=== PATIENT | female | born 1990 ===

== ENCOUNTER 2021-07-23 19:13 | Emergency (ER) | payer SELFPAY ==
[2021-07-23] MEDS ORDERED: Ciprofloxacin 500 MG Tab PO ONE (19:14)
[2021-07-23] MEDS ORDERED: Ondansetron 4 MG Tab.DIS PO ONE (19:14)
[2021-07-23] MEDS ORDERED: Sodium Chloride 0.9% 1,000 ML IV ONE (22:23)
[2021-07-23] MEDS ORDERED: Acetaminophen 325 MG Tab PO ONE (22:33)
[2021-07-23] MEDS ORDERED: fentaNYL 100 MCG/2 ML SDV IVPUSH ONE (22:34)
[2021-07-23] MEDS ORDERED: cefTRIAXone 1 GM in Sodium Chloride 0.9% 50 ML IV ONE (22:34)
[2021-07-23] MEDS ORDERED: Ondansetron 4 MG/2 ML SDV IVPUSH ONE (22:48)
[2021-07-23 22:49] LABS: METHAMPHETAMINES,URINE NEGATIVE (NEGATIVE)
[2021-07-23 22:50] LABS: AMPHETAMINES,URINE NEGATIVE (NEGATIVE); BARBITURATES,URINE NEGATIVE (NEGATIVE); BENZODIAZEPINE,URINE NEGATIVE (NEGATIVE); MDMA (ECSTASY), URINE NEGATIVE (NEGATIVE); METHADONE,URINE NEGATIVE (NEGATIVE); OPIATES,URINE NEGATIVE (NEGATIVE); OXYCODONE,URINE NEGATIVE (NEGATIVE); PHENCYCLIDINE,URINE NEGATIVE (NEGATIVE); TCA,URINE NEGATIVE (NEGATIVE)
[2021-07-23 23:17] LABS: ANION GAP 12.8 mEq/L (7-13); CHLORIDE,CL 101 mmol/L (98-107); SODIUM,NA 135 mmol/L (136-145)
[2021-07-23] MEDS ORDERED: Cyclobenzaprine 10 MG Tab PO ONE (23:44)
[2021-07-23] MEDS ORDERED: Ketorolac 30 MG/ML SDV IVPUSH ONE (23:44)
[2021-07-24] MEDS ORDERED: Ciprofloxacin 500 MG Tab ONE (00:03)
[2021-07-24] MEDS ORDERED: Cyclobenzaprine 10 MG Tab ONE (00:03)
[2021-07-24] MEDS ORDERED: Ondansetron 4 MG Tab.DIS ONE (00:03)
[2021-07-24 00:31] LABS: CORONAVIRUS COVID-19 NAA POSITIVE (NEGATIVE)
== END 2021-07-24 00:21 | disposition home or self-care (01) ==
LOC: DL.ED 19:13
DX: N12 Tubulo-interstitial nephritis, not specified as acute or chronic (principal); Z20.822 Contact with and (suspected) exposure to COVID-19
CPT/HCPCS: 0240U; 36415; 80053; 80305-QW; 81001; 83605; 85025; 87040; 87086; 87088; 87186; 96365; 96375; 99283; 99283-25; A9270-GY; J0696; J1885; J2405; J3010; J7030